=== PATIENT | female | born 1980 | race Caucasian/White ===

== ENCOUNTER 2024-07-08 12:56 | Emergency (ER) | payer BC ==
[~2024-07-08] VITALS: Ht 165.1 cm; Wt 88.8 kg
[2024-07-08 12:59] VITALS: TEMP 95
[2024-07-08 14:30] LABS: BASO % 0.2 % (0.0-1.0); HEMATOCRIT 38.8 % (36.0-47.0); HEMOGLOBIN 12.4 g/dl (12.0-15.5); LYMPH # 1.4 10^3/uL (1.5-5.0); LYMPH % 12.7 % (24.0-44.0); MEAN CORPUSCULAR HEMOGLOBIN 24.1 pg (27.0-33.0); MEAN CORPUSCULAR VOLUME 75.3 fl (80.0-96.0); MONO # 0.8 10^3/uL (0.0-0.8); MONO % 7.8 % (2.0-8.0); NEUTROPHILS # 8.5 10^3/uL (1.5-8.5); NEUTROPHILS % 78.8 % (36.0-66.0); PLATELET COUNT, AUTOMATED 411 10^3/uL (150-450); RED BLOOD COUNT 5.15 10^6/uL (4.00-5.40); WHITE BLOOD COUNT 10.8 10^3/uL (4.0-10.0)
[2024-07-08] MEDS: ONDANSETRON 4MG 2ML VIAL IV ONE (14:40)
[2024-07-08 15:00] LABS: LIPASE 23 U/L (12-53)
[2024-07-08 15:02] LABS: ALBUMIN 4.1 G/DL (3.2-5.2); ALKALINE PHOSPHATASE 104 U/L (35-104); ALT/SGPT 19 U/L (7.0-40); AST/SGOT 18 U/L (<34); BILIRUBIN,DIRECT 0.2 MG/DL (<0.4); BILIRUBIN,TOTAL 0.6 MG/DL (0.3-1.2); TOTAL PROTEIN 7.6 G/DL (5.7-8.2)
[2024-07-08 15:29] LABS: HCG, SERUM QUALITATIVE NEGATIVE (NEGATIVE)
[2024-07-08] MEDS: METOCLOPRAMIDE INJ 10MG/2ML VIAL IV ONE (16:49)
[2024-07-08] MEDS: KETOROLAC 30 MG/ML 1ML VIAL IV ONE (16:49)
[2024-07-08 17:30] VITALS: BP 113/67
[2024-07-08] MEDS ORDERED: REGL10TA6 PO (17:34)
[2024-07-08 17:41] VITALS: O2SAT 100
== END 2024-07-08 17:53 | disposition home or self-care (01) ==
LOC: M ED 12:56
DX: R11.10 Vomiting, unspecified (principal); F32.A Depression, unspecified; F12.10 Cannabis abuse, uncomplicated; Z79.899 Other long term (current) drug therapy
CPT/HCPCS: 80047; 80076; 83690; 84703; 85025; 96374; 96375; 99284; J1885; J2405; J2765

== ENCOUNTER 2024-07-10 10:34 | Emergency (ER) | payer BC ==
[~2024-07-10 10:34] MED LIST: REGL10TA6 PO
[2024-07-10] MEDS ORDERED: PRIL20TA2 PO (10:51)
[2024-07-10] MEDS ORDERED: LEXA1TAB2 PO (10:51)
[2024-07-10] MEDS: METOCLOPRAMIDE INJ 10MG/2ML VIAL IV ONE (12:03)
[2024-07-10 12:04] LABS: BASO % 0.2 % (0.0-1.0); HEMATOCRIT 37.9 % (36.0-47.0); HEMOGLOBIN 12.2 g/dl (12.0-15.5); LYMPH # 1.6 10^3/uL (1.5-5.0); LYMPH % 16.1 % (24.0-44.0); MEAN CORPUSCULAR HEMOGLOBIN 24.1 pg (27.0-33.0); MEAN CORPUSCULAR HGB CONC 32.2 g/dl (32.0-36.5); MEAN CORPUSCULAR VOLUME 74.8 fl (80.0-96.0); MONO # 1.2 10^3/uL (0.0-0.8); MONO % 11.6 % (2.0-8.0); NEUTROPHILS # 7.2 10^3/uL (1.5-8.5); NEUTROPHILS % 71.5 % (36.0-66.0); PLATELET COUNT, AUTOMATED 353 10^3/uL (150-450); RED BLOOD COUNT 5.07 10^6/uL (4.00-5.40)
[2024-07-10 12:29] LABS: BLOOD UREA NITROGEN 13 MG/DL (9-23); CALCIUM LEVEL 9.7 MG/DL (8.5-10.1); CARBON DIOXIDE LEVEL 26 MMOL/L (20-31); CHLORIDE LEVEL 96 MMOL/L (98-107); CREATININE FOR GFR 0.71 MG/DL (0.55-1.30); GLOMERULAR FILTRATION RATE > 60.0 (>58); GLUCOSE, FASTING 117 MG/DL (60-100); POTASSIUM SERUM 3.2 MMOL/L (3.5-5.1); SODIUM LEVEL 131 MMOL/L (136-145)
[2024-07-10] MEDS: PANTOPRAZOLE 40MG VIAL IV ONE (12:54)
[2024-07-10] MEDS: KETOROLAC 30 MG/ML 1ML VIAL IV ONE (12:54)
[2024-07-10] MEDS ORDERED: ISOVUE-370 76% 100ML VIAL As Ordered ONE (14:25)
[2024-07-10 14:30] LABS: CK-MB VALUE MASS 3.6 NG/ML (<3.6)
[2024-07-10 14:41] LABS: CPK CREATINE PHOSPHOKINASE 336 U/L (34-145); MB/CK RELATIVE INDEX 1.07 (< OR =4)
[2024-07-10] MEDS: POTASSIUM CHLORIDE 10% LIQ 20MEQ/15ML UDC PO ONE (15:24)
[2024-07-10] MEDS ORDERED: METO10TA3 PO (15:39)
[2024-07-10] MEDS: MECLIZINE 25 MG TABLET PO ONE (15:42)
[2024-07-10 16:09] VITALS: BP 160/81; TEMP 98.7; O2SAT 99
== END 2024-07-10 16:09 | disposition home or self-care (01) ==
LOC: M ED 10:34
DX: E87.6 Hypokalemia (principal); R11.10 Vomiting, unspecified; F12.10 Cannabis abuse, uncomplicated; Z79.899 Other long term (current) drug therapy
CPT/HCPCS: 74177; 80048; 82550; 82553; 84484; 85025; 93005; 96374; 96375; 99284; J1885; J2470; J2765; Q9967